=== PATIENT | female | born 1955 | race Caucasian/White ===

== ENCOUNTER 2016-07-23 11:03 | Outpatient (RCR) | payer BC ==
[~2016-07-23 11:03] MED LIST: AMBIEN 5MG TABLE5 MG PO; COMBIVENT INH14.7 GM IH; DIAZEPAM5 MG PO; PERCOCET 5/321 UDTAB PO; PHENERGAN 25 TA25 MG PO; PHENERGAN25 MG RC; PREMARIN .3MG0.3 MG PO; PRILOSEC 20MG20 MG PO; WELLBUTRIN SR150 M1 PO
== END 2016-08-14 15:02 | disposition home or self-care (01) ==
LOC: MKS.ESL.PT 11:03
DX: R15.9 Full incontinence of feces (principal)

== ENCOUNTER → 2018-03-12 | Outpatient (CLI) | payer BC | LOC: MC.RAD 09:50 | DX: Z12.31 Encounter for screening mammogram for malignant neoplasm of breast (principal); Z98.82 Breast implant status ==

== ENCOUNTER → 2019-04-05 | Outpatient (CLI) | payer BC | LOC: MC.RAD 10:55 | DX: Z12.31 Encounter for screening mammogram for malignant neoplasm of breast (principal) ==

== ENCOUNTER → 2020-01-17 | Outpatient (CLI) | payer MEDICARE, OTHER | LOC: COL.RAD 09:45 | DX: K59.1 Functional diarrhea (principal) | CPT/HCPCS: A9537; J2805 ==

== ENCOUNTER → 2020-04-06 | Outpatient (CLI) | payer MEDICARE, OTHER | LOC: MC.RAD 09:30 | DX: Z12.31 Encounter for screening mammogram for malignant neoplasm of breast (principal) ==

== ENCOUNTER 2021-02-05 13:45 | Outpatient (RCR) | payer MEDICARE, OTHER | END 2021-02-11 | disposition home or self-care (01) | LOC: PT.GENESIS | DX: S99.911A Unspecified injury of right ankle, initial encounter (principal) ==

== ENCOUNTER 2021-02-19 14:00 | Outpatient (RCR) | payer MEDICARE, OTHER | END 2021-05-04 | disposition home or self-care (01) | LOC: PT.GENESIS | DX: S86.311A Strain of muscle(s) and tendon(s) of peroneal muscle group at lower leg level, right leg, initial encounter (principal) ==

== ENCOUNTER → 2021-05-21 | Outpatient (CLI) | payer MEDICARE, OTHER | LOC: MC.RAD 09:25 | DX: Z12.31 Encounter for screening mammogram for malignant neoplasm of breast (principal) ==

== ENCOUNTER → 2023-02-14 | Outpatient (CLI) | payer MEDICARE | LOC: MC.RAD 08:53 | DX: N64.4 Mastodynia (principal) ==

== ENCOUNTER → 2024-02-16 | Outpatient (CLI) | payer MEDICARE, OTHER | LOC: MC.RAD 10:00 | DX: Z12.31 Encounter for screening mammogram for malignant neoplasm of breast (principal) ==